=== PATIENT | female | born 1990 | race Caucasian/White ===

== ENCOUNTER 2016-07-12 21:50 | Emergency (ER) | payer BC, OTHER ==
--- NOTE | 2016-07-12 21:56 | EDPHY ---
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 in [place]. Patient tells me that she took a double marijuana 10 mg shock lit as well as drank half a beer she started becoming nauseous she bent over trash can she thought she was going to vomit got very lightheaded and had a full syncopal episode this was witnessed by her . No seizure activity no head strike. Upon arrival to the emergency room the patient is resting comfortably she has no complaints she denies chest pain or shortness of breath. Denies headache. She tells me she feels fine. Her at bedside tells me that she is at her neurological baseline. Past Medical History: CVA embolic through a PFO Past Surgical History of PFO Repair Social History: Occasional alcohol use, occasional elbow marijuana, denies illicit drugs or tobacco products. Lives in [place] Family History: Noncontributory ROS REVIEW OF SYSTEMS: A comprehensive 10 point review of systems is otherwise negative aside from elements mentioned in the history of present illness. Exam Constitutional triage nursing summary reviewed, vital signs reviewed, awake/ alert. Eyes normal conjunctivae and sclera, EOMI, PERRLA. HENT normal inspection, atraumatic, moist mucus membranes, no epistaxis, neck supple/ no meningismus, no raccoon eyes. Respiratory clear to auscultation bilaterally, normal breath sounds, no respiratory distress, no wheezing. Cardiovascular rate normal, regular rhythm, no murmur, no edema, distal pulses normal. Gastrointestinal soft, non-tender, no rebound, no guarding, normal bowel sounds, no distension, no pulsatile mass. Genitourinary no CVA tenderness. Musculoskeletal no midline vertebral tenderness, full range of motion, no calf swelling, no tenderness of extremities, no meningismus, good pulses, neurovascularly intact. Skin pink, warm, & dry, no rash, skin atraumatic. 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 Psychiatric normal mood/affect. Heme/Lymph/Immune no lymphadenopathy. Differential Diagnosis: Includes but is not limited to in a particular order vasovagal syncope, orthostatic syncope, dehydration, substance intoxication including alcohol marijuana leading to syncope, cardiac arrhythmia Medical Decision Making: Patient be placed on a nurse monitoring and IV will be established patient will be given a fluid bolus, will obtain EKG and blood work. Most likely cause of syncope is dehydration, high elevation in [place] as well as alcohol and apple marijuana intoxication. Here at this time this patient appears well nontoxic no complaints resting comfortably. She tells me she is embarrassed. Re-evaluation: EKG interpretation by me on record in [employer] system. Impression time of EKG 2201, this is sinus rhythm rate of 66, there is no prolonged intervals. No signs of ischemia specifically no ST elevation, ST depression, T-wave abnormalities. No signs of cardiac arrhythmia. Unremarkable EKG. 2331: re-evaluation at this time this patient is resting comfortably no acute distress. She has been placed on nurse monitoring the entire time she has been here no signs of cardiac arrhythmia. She has no chest pain or shortness of breath she does not feel lightheaded does not feel like she is going to pass out she is requesting be discharged home. Of note review of her blood work is unremarkable, EKG unremarkable, chest x-ray unremarkable. Negative troponin. Not . She p.o. challenge well here without any nausea vomiting she ambulated well throughout the emergency room without any difficulty. She does understand if she develops another syncopal episode nausea chest pain shortness of breath or vomiting she needs return to the emergency room. ED x-ray chest one view: negative for acute cardiopulmonary disease. Image interpreted by myself. Most likely cause of syncope is dehydration, marijuana intoxication alcohol intoxication, and elevation change. Source: Patient, EMS Constitutional: Initial Vital Signs Temperature (C) 36.6 C 07/12/16 21:58 Heart Rate 68 07/12/16 21:58 Respiratory Rate 16 07/12/16 21:58 Blood Pressure 105/77 07/12/16 21:58 O2 Sat (%) 98 07/12/16 21:58 O2 Delivery Mode Room Air Allergies/Adverse Reactions: No Known Allergies Allergy (Unverified 07/12/16 22:02) Home Medications: Medication Instructions Recorded ASPIRIN 07/12/16 Medical Decision Making - Data Points Laboratory Results: Laboratory Results 07/12/16 22:00 07/12/16 22:00 07/12/16 07/12/16 07/12/16 22:00 22:00 22:00 WBC RBC Hgb Hct MCV MCH MCHC RDW Plt Count MPV Neut % (Auto) Lymph % (Auto) [place] % (Auto) Eos % (Auto) Baso % (Auto) Nucleat RBC Rel Count Absolute Neuts (auto) Absolute Lymphs (auto) Absolute Monos (auto) Absolute Eos (auto) Absolute Basos (auto) Absolute Nucleated RBC Immature Gran % Immature Gran # PT 14.0 SEC SEC (12.0-15.0) INR 1.09 (0.83-1.16) APTT 22.9 SEC L SEC (23.0-38.0) Sodium 139 mEq/L mEq/L (134-144) Potassium 3.8 mEq/L mEq/L (3.5-5.2) Chloride 102 mEq/L mEq/L (97-110) Carbon Dioxide 23 mEq/l mEq/l (22-31) Anion Gap 14 mEq/L mEq/L (8-16) BUN 17 mg/dL mg/dL (7-23) Creatinine 1.0 mg/dL mg/dL (0.6-1.0) Estimated GFR > 60 Glucose 82 mg/dL mg/dL (70-100) Calcium 10.0 mg/dL mg/dL (8.5-10.4) Magnesium 1.9 mg/dL mg/dL (1.6-2.3) Total Bilirubin 0.5 mg/dL mg/dL (0.1-1.4) Conjugated Bilirubin 0.3 mg/dL mg/dL (0.0-0.5) Unconjugated Bilirubin 0.2 mg/dL mg/dL (0.0-1.1) AST 26 IU/L IU/L (14-46) ALT 20 IU/L IU/L (9-52) Alkaline Phosphatase 63 IU/L IU/L (38-126) Creatine Kinase 79 IU/L IU/L (0-156) CK-MB (CK-2) Fraction 1.05 ng/mL ng/mL (0-3.19) Troponin I < 0.012 ng/mL ng/mL (0-0.034) NT-Pro-B Natriuret Pep 88 pg/mL pg/mL (0-125) Total Protein 7.9 g/dL g/dL (6.3-8.2) Albumin 4.4 g/dL g/dL (3.5-5.0) Lipase 101.0 IU/L IU/L (23-300) Beta HCG, Qual NEGATIVE Ethyl Alcohol < 10 mg/dL mg/dL (0-10) 07/12/16 22:00 WBC 7.93 10^3/uL 10^3/uL (3.80-9.50) RBC 4.37 10^6/uL 10^6/uL (4.18-5.33) Hgb 13.7 g/dL g/dL (12.6-16.3) Hct 41.0 % % (38.0-47.0) MCV 93.8 fL fL (81.5-99.8) MCH 31.4 pg pg (27.9-34.1) MCHC 33.4 g/dL g/dL (32.4-36.7) RDW 13.0 % % (11.5-15.2) Plt Count 225 10^3/uL 10^3/uL (150-400) MPV 10.7 fL fL (8.7-11.7) Neut % (Auto) 48.5 % % (39.3-74.2) Lymph % (Auto) 41.2 % % (15.0-45.0) [place] % (Auto) 7.9 % % (4.5-13.0) Eos % (Auto) 1.8 % % (0.6-7.6) Baso % (Auto) 0.5 % % (0.3-1.7) Nucleat RBC Rel Count 0.0 % % (0.0-0.2) Absolute Neuts (auto) 3.84 10^3/uL 10^3/uL (1.70-6.50) Absolute Lymphs (auto) 3.27 10^3/uL H 10^3/uL (1.00-3.00) Absolute Monos (auto) 0.63 10^3/uL 10^3/uL (0.30-0.80) Absolute Eos (auto) 0.14 10^3/uL 10^3/uL (0.03-0.40) Absolute Basos (auto) 0.04 10^3/uL 10^3/uL (0.02-0.10) Absolute Nucleated RBC 0.00 10^3/uL 10^3/uL (0-0.01) Immature Gran % 0.1 % % (0.0-1.1) Immature Gran # 0.01 10^3/uL 10^3/uL (0.00-0.10) PT INR APTT Sodium Potassium Chloride Carbon Dioxide Anion Gap BUN Creatinine Estimated GFR Glucose Calcium Magnesium Total Bilirubin Conjugated Bilirubin Unconjugated Bilirubin AST ALT Alkaline Phosphatase Creatine Kinase CK-MB (CK-2) Fraction Troponin I NT-Pro-B Natriuret Pep Total Protein Albumin Lipase Beta HCG, Qual Ethyl Alcohol Medications Given: Discontinued Medications Sodium Chloride (Ns) 1,000 mls @ 0 mls/hr IV ONCE ONE PRN Reason: Wide Open Stop: 07/12/16 22:05 Last Admin: 07/12/16 22:20 Dose: 1,000 mls Departure - Departure Disposition: Home, Routine, Self-Care Clinical Impression: Syncope Qualifiers: Syncope type: unspecified Qualified Code(s): R55 - Syncope and collapse Condition: Good Instructions: Syncope (ED) Additional Instructions: 1. make sure to stay well-hydrated drink lots of fluids over the next 48 hours. 2. please return to the emergency room if develops any worsening symptoms questions or concerns. Please refrain from smoking or eating a marijuana or drinking alcohol for the next week. Referrals: Patient,NotPresent [Unknown] - As per Instructions
[2016-07-12 22:01] VITALS: RESP 16
[2016-07-12] MEDS ORDERED: NS 1,000 ML IV ONE (22:04)
--- NOTE | 2016-07-12 22:04 | CPEKG ---
Heart Rate: 66 RR Interval: 909 P-R Interval: 176 QRSD Interval: 94 QT Interval: 376 QTC Interval: 394 P [place]: 49 QRS [place]: 83 T Wave [place]: 41 EKG Severity - NORMAL ECG - EKG Impression: SINUS RHYTHM Electronically Signed By: Hernandez Coe 18-Jul-2016 16:37:41
[2016-07-12 22:32] LABS: % IMMATURE GRANULYOCYTES 0.1 % (0.0-1.1); ABSOLUTE IMMATURE GRANULOCYTES 0.01 10^3/uL (0.00-0.10); ADD DIFF? NO; ADD MORPH? NO; ADD SCAN? NO; ATYPICAL LYMPHOCYTE FLAG 10 (0-99); FRAGMENT RBC FLAG 0 (0-99); HEMOGLOBIN 13.7 g/dL (12.6-16.3); LEFT SHIFT FLG 0 (0-99); LIPEMIA HEMOLYSIS FLAG 80 (0-99); MEAN CELL HEMOGLOBIN 31.4 pg (27.9-34.1); MEAN CELL HEMOGLOBIN CONCENTR. 33.4 g/dL (32.4-36.7); MEAN CELL VOLUME 93.8 fL (81.5-99.8); MEAN PLATELET VOLUME 10.7 fL (8.7-11.7); PLATELET CLUMPS FLAG 0 (0-99); PLATELET COUNT 225 10^3/uL (150-400); RED BLOOD CELL COUNT 4.37 10^6/uL (4.18-5.33)
[2016-07-12 22:41] LABS: APTT 22.9 SEC (23.0-38.0); INR 1.09 (0.83-1.16)
[2016-07-12 22:50] LABS: ALANINE AMINOTRANSFERASE 20 IU/L (9-52); ALBUMIN 4.4 g/dL (3.5-5.0); ALKALINE PHOSPHATASE 63 IU/L (38-126); ANION GAP 14 mEq/L (8-16); ASPARTATE AMINOTRANSFERASE 26 IU/L (14-46); BILIRUBIN,TOTAL 0.5 mg/dL (0.1-1.4); BILIRUBIN-CONJUGATED 0.3 mg/dL (0.0-0.5); BILIRUBIN-UNCONJUGATED 0.2 mg/dL (0.0-1.1); CARBON DIOXIDE 23 mEq/l (22-31); CHLORIDE 102 mEq/L (97-110); ETHANOL SERUM < 10 mg/dL (0-10); GLOMERULAR FILTRATION RATE > 60; GLUCOSE 82 mg/dL (70-100); MAGNESIUM 1.9 mg/dL (1.6-2.3); POTASSIUM 3.8 mEq/L (3.5-5.2); SODIUM 139 mEq/L (134-144); TOTAL PROTEIN 7.9 g/dL (6.3-8.2)
[2016-07-12 23:01] LABS: CREATINE KINASE-MB FRACTION 1.05 ng/mL (0-3.19); TROPONIN I < 0.012 ng/mL (0-0.034)
[2016-07-12 23:46] VITALS: BP 114/62; PULSE 82; TEMP 98.1; O2SAT 97
== END 2016-07-12 23:47 | disposition home or self-care (01) ==
LOC: EDUNIT#
DX: R55 Syncope and collapse (principal); Z79.82 Long term (current) use of aspirin; Z86.73 Personal history of transient ischemic attack (TIA), and cerebral infarction without residual deficits
CPT/HCPCS: G0480